=== PATIENT | female | born 1995 | race Two or more races ===

== ENCOUNTER 2021-06-27 21:31 | Emergency (ER) | payer OTHER ==
[~2021-06-27] VITALS: Ht 154.9 cm; Wt 63.5 kg
[2021-06-28] MEDS ORDERED: PHENAGIL TABLE1 EACH PO (04:13)
[2021-06-28] MEDS ORDERED: MECLIZINE HCL25 MG PO (04:13)
[2021-06-28] MEDS ORDERED: FLONASE16 GM NASAL (04:13)
== END 2021-06-28 04:15 ==
LOC: ER 21:31
DX: J32.8 Other chronic sinusitis (principal); B34.9 Viral infection, unspecified; Z20.822 Contact with and (suspected) exposure to COVID-19

== ENCOUNTER 2021-11-04 21:05 | Emergency (ER) | payer OTHER ==
[~2021-11-04] VITALS: Ht 154.9 cm; Wt 63.5 kg
[~2021-11-04 21:05] MED LIST: FLONASE16 GM NASAL; MECLIZINE HCL25 MG PO; PHENAGIL TABLE1 EACH PO
[2021-11-04] MEDS ORDERED: LEVALBUTER1.25 MG/0. IH (23:54)
[2021-11-04] MEDS ORDERED: MUCINEX DM ER1 EAC1 PO (23:54)
[2021-11-04] MEDS ORDERED: AZITHROMYCIN500 MG PO (23:54)
[2021-11-04] MEDS ORDERED: ZYRTEC10 MG PO (23:54)
== END 2021-11-05 00:03 | disposition home or self-care (01) ==
LOC: ER 21:05 → EMR PED 21:05 → ER 21:51
DX: A49.3 Mycoplasma infection, unspecified site (principal); J06.9 Acute upper respiratory infection, unspecified; Z20.822 Contact with and (suspected) exposure to COVID-19

== ENCOUNTER 2023-05-28 07:36 | Emergency (ER) | payer OTHER ==
[~2023-05-28] VITALS: Ht 165.1 cm; Wt 60.8 kg
[~2023-05-28 07:36] MED LIST changes: +AZITHROMYCIN500 MG PO; +LEVALBUTER1.25 MG/0. IH; +MUCINEX DM ER1 EAC1 PO; +ZYRTEC10 MG PO
[2023-05-28] MEDS ORDERED: UCERIS9 MG (07:44)
[2023-05-28] MEDS ORDERED: ALBUTEROL1.25 MG/3 (07:44)
[2023-05-28] MEDS ORDERED: GILTUSS TR TAB1 EACH (07:45)
[2023-05-28] MEDS ORDERED: PEPCID AC20 MG PO (10:42)
[2023-05-28] MEDS ORDERED: DUI500 PO (10:42)
[2023-05-28] MEDS ORDERED: ZOFRAN8 MG PO (10:42)
[2023-05-28] MEDS ORDERED: OSEL75CA PO (10:42)
== END 2023-05-28 10:51 | disposition home or self-care (01) ==
LOC: ER 07:36
DX: J10.1 Influenza due to other identified influenza virus with other respiratory manifestations (principal); Z20.822 Contact with and (suspected) exposure to COVID-19

== ENCOUNTER 2023-07-14 07:24 | Inpatient (IN) | payer OTHER ==
[~2023-07-14] VITALS: Ht 154.9 cm; Wt 63.5 kg
[~2023-07-14 07:24] MED LIST changes: +ALBUTEROL1.25 MG/3; +DUI500 PO; +GILTUSS TR TAB1 EACH; +OSEL75CA PO; +PEPCID AC20 MG PO; +UCERIS9 MG; +ZOFRAN8 MG PO
--- NOTE | 2023-07-14 07:34 | NUR ---
SE RECIBE PTE FEMENINA DE 27 ANOS ALERTA Y ORIENTADA X3 QUIEN REFIERE ATAQUE DE ASMA PTE AL MOMENTO SE OBSERBA CON DIFICULTAD RESPIRATORIA SE EDOUARD SPO2 PTE OBTIENE 90% SE AUSCULTA A PTE Y SE ESCUCHA WEAZING BILATERAL EN AMBOS PULMONES SE GAURANG S/V Y SE UBICA EN SECCION K.
--- NOTE | 2023-07-14 08:01 | NUR ---
SE LE ORIENTA A PACIENTE SOBRE LAS ORDENES MEDICAS, REFIERE ENTENDER LAS MISMAS. SE CANALIZA Y SE LE COLOCA H/L, SE NOTIFICA A TERAPIA RESPIRATORIA Y SE LE ADMINISTRAN LOS MEDICAMENTOS GRANT LAS ORDENES MEDICAS.
[2023-07-20] MEDS ORDERED: BUDESONIDE0.5 MG/2 M IH (13:52)
[2023-07-20] MEDS ORDERED: XOPENEX CO1.25 MG/0. IH (13:52)
[2023-07-20] MEDS ORDERED: BENZONATATE200 M1 PO (13:52)
[2023-07-20] MEDS ORDERED: CEFADROXIL500 MG PO (13:52)
[2023-07-20] MEDS ORDERED: GUAIFENESIN AC C5 ML PO (13:54)
== END 2023-07-20 17:01 | disposition home or self-care (01) | DRG 202 ==
LOC: ER 07:24 → MEDI 18:37 → SEC-K 18:37 → MEDI 19:59
PROVIDERS: Emergency Medicine; Internal Medicine Infectious Disease; ADMIT Internal Medicine; ATTEND Internal Medicine
PROC: BB24ZZZ Computerized Tomography (CT Scan) of Bilateral Lungs (ICD-10-PCS; principal; 2023-07-14)
PROC: 4A12X4Z Monitoring of Cardiac Electrical Activity, External Approach (ICD-10-PCS; 2023-07-14)
PROC: 3E0F7SF Introduction of Other Gas into Respiratory Tract, Via Natural or Artificial Opening (ICD-10-PCS; 2023-07-14)
PROC: 3E0F7GC Introduction of Other Therapeutic Substance into Respiratory Tract, Via Natural or Artificial Opening (ICD-10-PCS; 2023-07-14)
DX: J45.51 Severe persistent asthma with (acute) exacerbation (principal); J15.211 Pneumonia due to Methicillin susceptible Staphylococcus aureus; J98.11 Atelectasis; J98.8 Other specified respiratory disorders; R09.02 Hypoxemia

== ENCOUNTER → 2023-09-10 | Emergency (ER) | payer OTHER ==
[~2023-09-10] VITALS: Ht 167.6 cm; Wt 54.4 kg
[~2023-09-10] MED LIST changes: +BENZONATATE200 M1 PO; +BUDESONIDE0.5 MG/2 M IH; +CEFADROXIL500 MG PO; +GUAIFENESIN AC C5 ML PO; +XOPENEX CO1.25 MG/0. IH
== END | disposition left against medical advice (07) ==
LOC: ER 18:19
DX: Z53.21 Procedure and treatment not carried out due to patient leaving prior to being seen by health care provider (principal)

== ENCOUNTER 2023-10-09 12:25 | Emergency (ER) | payer OTHER ==
[~2023-10-09] VITALS: Ht 154.9 cm; Wt 62.6 kg
[2023-10-09 14:38] LABS: HEMATOCRIT 41.3 % (36.0-45.00); MEAN CELL VOLUME 86.1 fL (80.00-100.00); MEAN CORPUSCULAR HEMOGLOBIN 29.2 pg (27.00-32.0); PLATELET COUNT 368 K/uL (150-450); RED CELL DISTRIBUTION WIDTH 13.5 % (11.5-14.5)
[2023-10-09 14:51] LABS: ABG PH 7.442 (7.35-7.45); ABG PO2 66.5 mmHg (80-100); ABG pCO2 28.4 mmHg (35-45); BASE EXCESS -3.6 mmol/l; SaO2 93.5 %; Tco2 19.9 mmol/l; allen test SATISFACTORY; o2 21 %; puncture site RADIAL RIGHT
== END 2023-10-09 16:39 | disposition home or self-care (01) ==
LOC: ER 12:26
PROVIDERS: General Practice
DX: J45.909 Unspecified asthma, uncomplicated (principal); Z20.822 Contact with and (suspected) exposure to COVID-19